=== PATIENT | male | born 1990 | race African-American/Black ===

== ENCOUNTER 2021-03-13 13:53 | Emergency (ER) | payer MEDICAID ==
[~2021-03-13] VITALS: Ht 188 cm; Wt 90.7 kg
--- NOTE | 2021-03-13 14:14 | NUR ---
The patient bibs with c/o headache 08/14 and nausea. The patient states that he drinks hard liquor everyday. The patient is alert and oriented x4. Breathing even and unlabored. Denies SOB. Abdomen soft and non-distended. Will continue to monitor the patient.
--- NOTE | 2021-03-13 14:22 | NUR ---
DR VANCE AT THE BEDSIDE
[2021-03-13] MEDS ORDERED: ONDANSETRON HCL/PF 4 MG/2 ML VIAL ONE (14:29)
[2021-03-13] MEDS ORDERED: LORAZEPAM INJ 2 MG/ML VIAL ONE (14:30)
[2021-03-13] MEDS: LORAZEPAM INJ 2 MG/ML VIAL IV ONE (14:43)
[2021-03-13] MEDS: ONDANSETRON HCL/PF 4 MG/2 ML VIAL IVP ONE (14:43)
[2021-03-13] MEDS: IV NS 0.9% 1,000 ML BAG IV ONE (14:43)
[2021-03-13 14:47] LABS: HEMOGLOBIN 15.2 g/dL (13.5-17.5); LYMPHOCYTES # (AUTO) 1.4 K/uL (0.8-4.8); MEAN CORPUSCULAR HGB CONC 34 g/dl (31.0-36.0); MONOCYTES # (AUTO) 0.7 K/uL (0.1-1.30); NEUTROPHILS # (AUTO) 5.1 K/uL (1.8-8.9); RED BLOOD CELL COUNT(AUTO) 4.26 MIL/uL (4.5-6.0)
[2021-03-13 14:51] LABS: BASOPHILS % (AUTO) 0.5 % (0.0-2.0); EOSINOPHILS % (AUTO) 1.3 % (0.0-6.0); HEMATOCRIT 45 % (39-51); LYMPHOCYTES % (AUTO) 19.4 % (20.0-44.0); MEAN CORPUSCULAR VOLUME 105 fL (80-96); MONOCYTES % (AUTO) 9.6 % (2.0-12.0); NEUTROPHILS % (AUTO) 69.2 % (43.0-81.0); PLATELET COUNT (AUTO) 218 K/uL (150-450); WHITE BLOOD COUNT (AUTO) 7.4 K/uL (4.3-11.0)
[2021-03-13 14:53] LABS: CALCIUM, SERUM 9.4 mg/dL (8.5-10.1); CARBON DIOXIDE 25 mmol/L (21-32); CHLORIDE 100 mmol/L (98-107); CREATININE 1.1 mg/dL (0.6-1.3); GLUCOSE 90 mg/dL (74-106); SODIUM SERUM 136 mmol/L (136-145); UREA NITROGEN, BLOOD 13 mg/dL (7-18)
[2021-03-13 14:59] LABS: ALANINE AMINOTRANSFERASE 25 U/L (12-78); ALBUMIN 4.2 g/dL (3.4-5.0); ALCOHOL, BLOOD < 3 mg/dL (0-0); ALKALINE PHOSPHATASE 58 U/L (46-116); ASPARTATE AMINOTRANSFERASE 27 U/L (15-37); BILIRUBIN,DIRECT 0.3 mg/dL (0.0-0.2); BILIRUBIN,TOTAL 1.6 mg/dL (0.2-1.0); TOTAL PROTEIN, SERUM 7.5 g/dL (6.4-8.2)
[2021-03-13] MEDS ORDERED: ONDA4TAB5 PO (15:36)
[2021-03-13] MEDS ORDERED: CHLO25CA22 PO ×2 (15:36→15:37)
[2021-03-13 15:54] VITALS: BP 140/94
== END 2021-03-13 15:55 | disposition home or self-care (01) ==
LOC: ER 14:10
DX: F10.239 Alcohol dependence with withdrawal, unspecified (principal); I10 Essential (primary) hypertension; F17.200 Nicotine dependence, unspecified, uncomplicated; R00.0 Tachycardia, unspecified; Y90.0 Blood alcohol level of less than 20 mg/100 ml; Z79.899 Other long term (current) drug therapy
CPT/HCPCS: 36415; 80048; 80076; 80320; 85025; 93005; 96361; 96374; 96375; 99284; J2060; J2405; G0480

== ENCOUNTER → 2021-06-14 | Emergency (ER) | payer OTHER ==
[~2021-06-14] VITALS: Ht 188 cm; Wt 81.6 kg
[~2021-06-14] MED LIST: CHLO25CA22 PO; ONDA4TAB5 PO
[2021-06-14 23:38] VITALS: BP 143/91
--- NOTE | 2021-06-14 23:43 | NUR ---
PADMAJA HENLEY - GIRLFRIEND [phone]
== END | disposition home or self-care (01) ==
LOC: ER 23:28
DX: T40.411A Poisoning by fentanyl or fentanyl analogs, accidental (unintentional), initial encounter (principal); I10 Essential (primary) hypertension; F17.200 Nicotine dependence, unspecified, uncomplicated; Z79.899 Other long term (current) drug therapy; Y92.89 Other specified places as the place of occurrence of the external cause

== ENCOUNTER 2021-11-16 13:08 | Emergency (ER) | payer OTHER ==
[~2021-11-16] VITALS: Ht 180.3 cm; Wt 72.6 kg
--- NOTE | 2021-11-16 13:25 | NUR ---
REJI RA102 "DRANK ALCOHOL AND USED FENTANYL LAST NIGHT, NOW FEELING SICK AND VOMITING". TO ER BED 14, HOOKED TO MONITOR, CHANGED TO HOSP GOWN, WARM BLANKET PROVIDED. PATIENT AAO x 3, BREATHING JOHN AND UNLABORED. AWAITING MD SALCIDO
--- NOTE | 2021-11-16 14:50 | NUR ---
DR LUZ AT BEDSIDE
[2021-11-16] MEDS ORDERED: IV NS 0.9% 1,000 ML BAG IV ONE (15:00)
[2021-11-16] MEDS ORDERED: ONDANSETRON HCL/PF 4 MG/2 ML VIAL IVP ONE (15:00)
[2021-11-16] MEDS ORDERED: FAMOTIDINE/PF INJ 20 MG/2 ML VIAL IV ONE ×2 (15:00→15:06)
[2021-11-16] MEDS ORDERED: LORAZEPAM INJ 2 MG/ML VIAL IV ONE ×2 (15:00→21:00)
[2021-11-16] MEDS ORDERED: LORAZEPAM INJ 2 MG/ML VIAL ONE ×2 (15:07→20:57)
[2021-11-16] MEDS ORDERED: ONDANSETRON HCL/PF 4 MG/2 ML VIAL ONE ×2 (15:08→17:46)
--- NOTE | 2021-11-16 15:36 | NUR ---
URINE SAMPLE COLLECTED AND SENT TO LAB
[2021-11-16 15:42] LABS: BASOPHILS % (AUTO) 0.3 % (0.0-2.0); EOSINOPHILS % (AUTO) 0.1 % (0.0-6.0); HEMATOCRIT 42 % (39-51); HEMOGLOBIN 13.9 g/dL (13.5-17.5); LYMPHOCYTES # (AUTO) 0.7 K/uL (0.8-4.8); LYMPHOCYTES % (AUTO) 3.7 % (20.0-44.0); MEAN CORPUSCULAR HGB CONC 33 g/dl (31.0-36.0); MEAN CORPUSCULAR VOLUME 101 fL (80-96); MONOCYTES # (AUTO) 0.8 K/uL (0.1-1.30); MONOCYTES % (AUTO) 4.4 % (2.0-12.0); NEUTROPHILS # (AUTO) 16.9 K/uL (1.8-8.9); NEUTROPHILS % (AUTO) 91.5 % (43.0-81.0); PLATELET COUNT (AUTO) 215 K/uL (150-450); RED BLOOD CELL COUNT(AUTO) 4.15 MIL/uL (4.5-6.0); WHITE BLOOD COUNT (AUTO) 18.5 K/uL (4.3-11.0)
[2021-11-16 15:53] LABS: BILIRUBIN,URINE NEGATIVE (NEGATIVE); COLOR,URINE YELLOW (YELLOW); LEUKOCYTE ESTERASE ,URINE NEGATIVE (NEGATIVE); NITRITE, URINE NEGATIVE (NEGATIVE); PH,URINE 6.5 (5.0-8.0); PROTEIN,URINE NEGATIVE (NEGATIVE); UGLUCOSE NEGATIVE (NEGATIVE); UROBILINOGEN,URINE 0.2 EU/dL (0.2)
[2021-11-16 16:07] LABS: BILIRUBIN,DIRECT 0.2 mg/dL (0.0-0.2); BILIRUBIN,TOTAL 0.6 mg/dL (0.2-1.0); CALCIUM, SERUM 9.5 mg/dL (8.5-10.1); CREATININE 1.2 mg/dL (0.6-1.3); TOTAL PROTEIN, SERUM 7.2 g/dL (6.4-8.2)
[2021-11-16] MEDS ORDERED: CLONIDINE HCL 0.1 MG TABLET PO ONE (17:00)
[2021-11-16] MEDS ORDERED: CLONIDINE HCL 0.1 MG TABLET ONE (17:46)
[2021-11-16] MEDS ORDERED: ONDANSETRON HCL/PF - ER 4 MG/2 ML VIAL IV ONE (18:00)
[2021-11-16] MEDS ORDERED: IV NS 0.9% 1,000 ML IV ONE (18:00)
[2021-11-16] MEDS ORDERED: METOCLOPRAMIDE HCL 10 MG/2 ML VIAL IV ONE (19:00)
[2021-11-16] MEDS ORDERED: METOCLOPRAMIDE HCL 10 MG/2 ML VIAL ONE (19:04)
--- NOTE | 2021-11-16 20:37 | NUR ---
PT VERBALIZES HAVING NAUSEA AND GENERALIZED PAIN, WILL NOTIFY ER MD.
--- NOTE | 2021-11-16 21:04 | NUR ---
covid swab done and sent to lab
--- NOTE | 2021-11-16 21:10 | NUR ---
MRSA SWAB COLLECTED AND SENT TO LAB. PATIENT'S BELONGINGS LIST DONE.
--- NOTE | 2021-11-16 21:18 | NUR ---
PT NOTED WITH IV PULLED OUT
--- NOTE | 2021-11-16 21:29 | NUR ---
Patient eloped from facility. ER MD notified.
[2021-11-16 21:30] VITALS: BP 160/98
== END 2021-11-16 21:31 | disposition left against medical advice (07) ==
LOC: ER 13:42
DX: F11.13 Opioid abuse with withdrawal (principal); R11.2 Nausea with vomiting, unspecified; F10.239 Alcohol dependence with withdrawal, unspecified; Y90.0 Blood alcohol level of less than 20 mg/100 ml; I10 Essential (primary) hypertension; Z20.822 Contact with and (suspected) exposure to COVID-19; Z91.14 Patient's other noncompliance with medication regimen; J45.909 Unspecified asthma, uncomplicated
CPT/HCPCS: 36415; 80048; 80076; 80307; 80320; 81003; 83690; 85025; 87081; 87426; 96361; 96374; 96375; 96376; 99285; C9803; J2060 ×2; J2405 ×3; J2765; J3490; J7030 ×3; G0480

== ENCOUNTER 2023-05-01 20:35 | Emergency (ER) | payer OTHER ==
[~2023-05-01] VITALS: Ht 185.4 cm; Wt 77.1 kg
[2023-05-01] MEDS ORDERED: diphenhydrAMINE HCL 50 MG/ML VIAL IM ONE (21:00)
[2023-05-01] MEDS ORDERED: diphenhydrAMINE HCL 50 MG/ML VIAL ONE (21:02)
[2023-05-01 21:19] LABS: BASOPHILS % (AUTO) 0.3 % (0.0-2.0); EOSINOPHILS % (AUTO) 0.1 % (0.0-6.0); HEMATOCRIT 40 % (39-51); HEMOGLOBIN 13.5 g/dL (13.5-17.5); LYMPHOCYTES # (AUTO) 1.2 K/uL (0.8-4.8); MEAN CORPUSCULAR HEMOGLOBIN 33 PG (26.0-33.0); MEAN CORPUSCULAR HGB CONC 33 g/dl (31.0-36.0); MEAN CORPUSCULAR VOLUME 98 fL (80-96); MONOCYTES # (AUTO) 0.8 K/uL (0.1-1.30); MONOCYTES % (AUTO) 5.3 % (2.0-12.0); NEUTROPHILS # (AUTO) 12.5 K/uL (1.8-8.9); NEUTROPHILS % (AUTO) 86.3 % (43.0-81.0); PLATELET COUNT (AUTO) 218 K/uL (150-450); RED CELL DISTRIBUTION WIDTH 12.8 % (11.5-15.0); WHITE BLOOD COUNT (AUTO) 14.5 K/uL (4.3-11.0)
[2023-05-01 21:27] LABS: CALCIUM, SERUM 10.6 mg/dL (8.5-10.1); CARBON DIOXIDE 21 mmol/L (21-32); CHLORIDE 96 mmol/L (98-107); CREATININE 1.2 mg/dL (0.6-1.3); GLUCOSE 135 mg/dL (74-106); SODIUM SERUM 135 mmol/L (136-145); UREA NITROGEN, BLOOD 18 mg/dL (7-18)
[2023-05-01 21:33] LABS: ALANINE AMINOTRANSFERASE 28 U/L (12-78); ALBUMIN 4.9 g/dL (3.4-5.0); ALKALINE PHOSPHATASE 89 U/L (46-116); ASPARTATE AMINOTRANSFERASE 21 U/L (15-37); BILIRUBIN,DIRECT 0.3 mg/dL (0.0-0.2); BILIRUBIN,TOTAL 1.2 mg/dL (0.2-1.0); SALICYLATE < 0.2 mg/dL (2.8-20.0); TOTAL PROTEIN, SERUM 8.4 g/dL (6.4-8.2)
[2023-05-01 21:34] LABS: ACETAMINOPHEN <10 ug/ml (10-30); ALCOHOL, BLOOD < 3 mg/dL (0-10)
[2023-05-01 21:50] VITALS: BP 150/109; TEMP 98.3; O2SAT 100
[2023-05-01] MEDS ORDERED: BUPRENORPHINE HCL 2 MG TAB.SUBL SL ONE ×2 (22:39→23:00)
[2023-05-01] MEDS ORDERED: IV NS 0.9% 1,000 ML BAG IV ONE (23:00)
[2023-05-01] MEDS ORDERED: POTASSIUM CHLORIDE 20 MEQ TAB.PRT.SR PO ONE ×2 (23:30→23:31)
[2023-05-01] MEDS ORDERED: LORAZEPAM 1 MG TABLET PO ONE (23:30)
[2023-05-01] MEDS ORDERED: LORAZEPAM 1 MG TABLET ONE (23:32)
[2023-05-02] MEDS ORDERED: BUPR1FIL SL (00:11)
[2023-05-02] MEDS ORDERED: ONDA4TAB5 PO (00:11)
== END 2023-05-02 00:15 | disposition home or self-care (01) ==
LOC: ER 20:37
DX: F11.23 Opioid dependence with withdrawal (principal); R11.2 Nausea with vomiting, unspecified; I10 Essential (primary) hypertension; F17.200 Nicotine dependence, unspecified, uncomplicated
CPT/HCPCS: 99284; 96372; 96360; 85025; 80048; 80076; 36415; 80143; 80320; J1200; J7030; G0480